=== PATIENT | female | born 1945 | race Caucasian/White ===

== ENCOUNTER 2016-09-14 12:36 | Emergency (ER) | payer MEDICARE, OTHER ==
[2016-09-14 11:20] LABS: INTERNATIONAL NORMAL RATI 1.1 UNITS (-); PARTIAL THROMBO TIME 26.6 SEC (22.5-37.2); PROTIME (NOT ORD) 14.4 SEC (12.0-14.5)
[2016-09-14 11:22] LABS: ER CBC TAT 0 Hrs 14 Mins; HEMOGLOBIN 7.8 g/dL (12.0-16.0); MANUAL DIFF YES %; MEAN CORPUS HGB CONC 31.2 g/dL (32.0-36.0); MEAN CORPUSCULAR HEMOGLOB 29.8 pg (26.0-34.0); MEAN CORPUSCULAR VOLUME 95.4 fL (80-100); NUCLEATED RED BLOOD CELLS 4.5 /100WBC (0-0); PLATELET COUNT 82 10/3/uL (150-400); RBC DISTRIBUTION WIDTH 24.6 % (12.0-16.0); RED CELL COUNT 2.62 10/6/uL (4.0-5.6); WHITE BLOOD CELLS 6.6 10/3/uL (4.5-10.5)
[2016-09-14 11:32] LABS: ASCORBIC ACID (UR NOT ORDER) NEG (NEG); BILIRUBIN, URINE NEGATIVE (NEG); ER URINALYSIS TAT 0 Hrs 11 Mins; KETONE, URINE TRACE MG/DL (NEG); LEUKOCYTE ESTERASE(NOT OR SMALL (NEG); NITRITE (URINE) NEG (NEG); WBC (NOT ORDERED) (RFLEX) 4 (0-5)
[2016-09-14 11:35] LABS: CALCIUM, SERUM 9.1 MG/DL (8.5-10.4); CHEST PAIN PROFILE TAT 0 Hrs 27 Mins; CHLORIDE, SERUM 105 MMOL/L (96-112); CO2 (CARBON DIOXIDE) 24 MMOL/L (24-34); GFR AFRICAN AMERICAN 66 ML/MIN (>=60); GFR NON AFRICAN AMERICAN 57 ML/MIN (>=60); GLUCOSE, SERUM 104 MG/DL (60-99); POTASSIUM, SERUM 4.4 MMOL/L (3.5-5.3); SODIUM, SERUM 138 MMOL/L (135-148); TROPONIN I <0.02 NG/ML (<0.05)
[2016-09-14 11:37] LABS: BUN (BLOOD UREA NITROGEN) 21 MG/DL (6-23)
[2016-09-14 11:47] LABS: ATYPICAL LYMPH OCC (0-2%) (0-5%); BAND NEUTROPHILS 8 %; EOSINOPHILS 2 %; EOSINOPHILS ABSOLUTE (CALC) 0.13 10/3/uL (0.0-0.53); ER DIFF TAT 0 Hrs 39 Mins; LYMPHOCYTES 12 %; LYMPHOCYTES ABSOLUTE (CALC) 0.79 10/3/uL (0.67-4.30); MONOCYTES 9 %; MONOCYTES ABSOLUTE (CALC) 0.59 10/3/uL (0.21-1.20); NEUTROPHILS ABSOLUTE (CALC) 5.08 10/3/uL (2.02-8.40); PLATELET ESTIMATE DEC (ADEQUATE); SEGMENTED NEUTROPHIL (0) 69 %; TOTAL NUCLEATED CELLS 100
[2016-09-14 11:49] LABS: INFLUENZA A SCREEN NEGATIVE (NEGATIVE); INFLUENZA B SCREEN NEGATIVE (NEGATIVE)
[~2016-09-14 12:36] MED LIST: ASAB PO; HYDREA PO; JAKAFI10 MG PO; LEVOTHYROXIN100 MCG PO; LIPITOR20 PO; PROZ10 PO; VASOTEC10 PO
== END 2016-09-14 15:06 | disposition home or self-care (01) ==
LOC: ER 12:36
PROVIDERS: Emergency Medicine
DX: R50.9 Fever, unspecified (principal); R05 Cough; R11.2 Nausea with vomiting, unspecified; R06.02 Shortness of breath; D61.818 Other pancytopenia; I10 Essential (primary) hypertension; Z88.1 Allergy status to other antibiotic agents; Z88.8 Allergy status to other drugs, medicaments and biological substances; Z79.82 Long term (current) use of aspirin; Z79.899 Other long term (current) drug therapy
CPT/HCPCS: 71010; 80048; 81001; 83735; 83880; 84484; 85025; 85610; 85730; 87040; 87070; 87086; 87804; 87880; 94640; 96374; 99285; A9270-GY; J2405

== ENCOUNTER 2016-10-21 08:02 | Inpatient (IN) | payer MEDICARE, OTHER ==
--- NOTE | ~2016-10-21 | DS ---
Discharge Summary [place] [address] [facility] [place]. [address] NAME: LATISHA BACON : 47 STATUS : DIS IN PAT#: [id number] AGE: 71 ADM/REG DATE : 10/21/16 MR#: [id number] REPORT SERV DATE: 10/26/16 DICTATED BY: OLIVER LARSEN DATE: 10/25/16 REPORT STATUS : Draft TRANSCRIBED BY: MODL DATE: 10/25/16 ADMISSION DATE: 10/21/2016 DISCHARGE DATE: 10/25/2016 DISCHARGE DIAGNOSES: 1. Acute diverticulitis as evidenced by diarrhea and bright red blood per rectum. 2. Myelofibrosis. 3. Hypertension. 4. Hyperlipidemia. 5. Chronic left bundle-branch block. 6. History of colon cancer and partial colectomy. 7. Previous polycythemia vera, now turning to myelofibrosis. CONSULTANTS DURING THIS HOSPITALIZATION: Dr. Taya Schaefer of Gastroenterology. INVASIVE PROCEDURES DONE DURING THIS HOSPITALIZATION: None. IMAGING: CT of the abdomen and pelvis showing finding sigmoid most likely representing diverticulitis. Differentials include infectious colitis. Followup recommended to exclude neoplasm, less likely. Splenomegaly and benign cyst, right femoral neck. BRIEF HISTORY OF PRESENT ILLNESS: The patient is a 71-year-old female, presented to the emergency room with complaints of abdominal pain, nausea, vomiting, and a bloody diarrhea, so she was admitted. For detailed history and physical exam, please see note dictated by Dr. Yenni Fontana on 10/21/2016. HOSPITAL COURSE: After being admitted to the hospital, this patient was given PRBCs to stabilize her hemoglobin. She has history of myelofibrosis, so she has chronic anemia. Dr. Schaefer saw the patient in consultation, recommended to continue antibiotic therapy. Over the last three days, this patient has continually improved. All her other medical parameters have remained stable. Her platelet count has gone down somewhat to about 41,000, but she has no evidence of any gross bleeding. She did have a bowel movement and she is tolerating a diet, so she is being discharged in stable condition to follow up in the outpatient setting. DISCHARGE DISPOSITION: Home. DISCHARGE ACTIVITY: As tolerated. DISCHARGE DIET: GI soft. DISCHARGE MEDICATIONS: Levaquin 750 mg one tablet daily for five more days, Flagyl 500 mg three times daily for five more days, [place] 5/325 one tablet every six hours p.r.n. for pain #20 with no refills given, atorvastatin 20 mg once daily, Prozac 20 mg once daily, levothyroxine 100 mcg once daily, Vasotec 10 mg twice daily, and Artificial Tears as needed. Discharge Summary [place] [address] [place] [address] NAME: LATISHA BACON : 47 STATUS : DIS IN PAT#: [id number] AGE: 71 ADM/REG DATE : 10/21/16 MR#: [id number] REPORT SERV DATE: 10/26/16 DICTATED BY: OLIVER LARSEN DATE: 10/25/16 REPORT STATUS : Draft TRANSCRIBED BY: JAYMIE DATE: 10/25/16 DISCHARGE FOLLOWUP: With Dr. Kimani Mckeon in one week for repeat blood work. With Dr. Jorge as previously scheduled for further need of colonoscopy or intervention. With Dr. Michael Skaggs as scheduled previously. More than 30 minutes spent planning this patient's discharge, reconciling medications, writing prescriptions, discussing hospital care and followup with the patient and documenting this discharge. FAWN/JAYMIE Oliver Larsen M.D. / [id number] CC: Venkata Gant M.D. Henry Paik, M.D.
--- NOTE | ~2016-10-21 | HP ---
History And Physical [place] [address] [facility] [place]. [address] NAME: LATISHA BACON : 47 STATUS : ADM IN [facility]#: [id number] AGE: 71 ADM/REG DATE : 10/21/16 MR#: [id number] REPORT SERV DATE: 10/21/16 DICTATED BY: TANYA FONTANA DATE: 10/21/16 REPORT STATUS : Draft TRANSCRIBED BY: JAYMIE DATE: 10/21/16 DATE OF ADMISSION: 10/21/2016 CHIEF COMPLAINT: Diarrhea and bloody stool. HISTORY OF PRESENT ILLNESS: The patient is a very pleasant 71-year-old white female with a history of initially polycythemia, then developed myelofibrosis, she is currently awaiting bone marrow transplant. The patient reports that yesterday she started feeling nauseous about 5 p.m. She then developed vomiting and vomited several times. She then developed loose liquidy stools which were diarrheal and contained a significant amount of bright red blood. She states she had stools all evening up to some 10 to 20 stools. She had lower abdominal crampy pain but no fever and no chills. She finally presented to [facility] Emergency Department this morning. She has a history of colorectal cancer and a polyp which was excised with a laparoscopic partial colectomy. She states she had about 6 inches removed. She had her last colonoscopy in July of this year and states everything looked good. She did have some antibiotics about a month ago in the form of Levaquin, and she completed the antibiotic as instructed. PAST MEDICAL HISTORY: 1. Myelofibrosis with chronic anemia, thrombocytopenia, and leukopenia. 2. Hyperlipidemia. 3. Colon cancer and history of partial colectomy. 4. Polycythemia vera previously. 5. Hypothyroidism. 6. Left bundle-branch block. PAST SURGICAL HISTORY: She has had a hysterectomy, tonsillectomy, laparoscopic cholecystectomy, and partial left colectomy. HOME MEDICATIONS: Pending. SOCIAL HISTORY: She never smoked or drank. She is . She has a daughter at bedside. FAMILY HISTORY: She had a mother and a sister who of lung cancer but they were smokers. REVIEW OF SYSTEMS: Full 10-point review of systems obtained. Pertinent positives mentioned in the HPI. PHYSICAL EXAMINATION: VITAL SIGNS: Blood pressure 117/53, sats 100%, temperature 93, pulse 84, and respiratory rate 22. GENERAL: Well-developed white female, in no apparent distress. HEENT: Normocephalic, atraumatic. Throat is clear. NECK: Supple. HEART: Regular rate and rhythm. History And Physical [address]. [address] NAME: LATISHA BACON : 47 STATUS : ADM IN PAT#: [id number] AGE: 71 ADM/REG DATE : 10/21/16 MR#: [id number] REPORT SERV DATE: 10/21/16 DICTATED BY: TANYA FONTANA DATE: 10/21/16 REPORT STATUS : Draft TRANSCRIBED BY: MODDea DATE: 10/21/16 LUNGS: Grossly clear. ABDOMEN: Soft, nondistended. She does have some lower abdominal tenderness in bilateral lower quadrants. I did examine her stool and it is bright red blood, it is liquid. EXTREMITIES: Warm and dry. Skin is intact. She has no peripheral edema. LAB AND X-RAY STUDIES: Coags are normal. Sodium is 138, potassium 4.3, chloride 105, CO2 of 22, BUN and creatinine 25 and 1.19. Glucose 117. LFTs are normal. Lipase is normal. Lactate is 1.3. H and H are 7.4 and 23.5, white count is 7.5, and platelets are 74. CT of the abdomen and pelvis shows wall thickening and inflammatory changes, involving her sigmoid colon diffusely, consistent with possible colitis versus diverticulitis. Urinalysis is benign. C. diff is pending. ASSESSMENT/PLAN: 1. Colitis versus diverticulitis as evidenced by diarrhea, bright red blood per rectum, abdominal pain, and findings on CT. Given her hemoglobin has dropped to 7.4, her baseline was around 8.8. I am going to transfuse two units. I am going to keep her n.p.o., provide aggressive fluid resuscitation. We will cover in the meantime with Levaquin and Flagyl to cover enteric pathogens and also diverticulitis. I did consider strongly the possibility of Clostridium difficile since she had Levaquin about a month ago. I have sent a stat C. diff. Stool has been collected, it is in the lab, awaiting testing; if this is positive, we will stop the Levaquin and start her on some p.o. vancomycin. I have consulted Dr. Jorge. If her C. diff is positive, we will likely cancel that consult but if not, we will have him see her in consultation. We will follow her exam. She is currently hemodynamically stable. I think she is safe for a Med/Surg bed. 2. History of myelofibrosis. Awaiting bone marrow transplant. She is currently undergoing workup but will likely be several months before she goes forward with that. 3. History of hypertension. Holding antihypertensives. 4. History of hyperlipidemia. Continue statin therapy. 5. Deep venous thrombosis prophylaxis. We will hold off since she has active bleeding. 6. History of left bundle branch block. 7. Disposition pending above aforementioned plan and workup. KI/JAYMIE Tanya Fontana M.D. / [id number] CC: Venkata Booth M.D. Venkata Mortensen M.D.
--- NOTE | ~2016-10-21 | CN ---
Consultation Report [facility] [address] [place]. [address] NAME: LATISHA FRANKLIN : 47 STATUS : ADM IN PAT#: [id number] AGE: 71 ADM/REG DATE : 10/21/16 MR#: [id number] REPORT SERV DATE: 10/22/16 DICTATED BY: MICHAELA MANN DATE: 10/22/16 REPORT STATUS : Draft TRANSCRIBED BY: MODL DATE: 10/22/16 GI CONSULTATION DATE OF CONSULTATION: 10/21/2016 REASON FOR CONSULTATION: Rectal bleeding with diarrhea. HISTORY OF PRESENT ILLNESS: Ms. Franklin is a very pleasant 71-year-old white female with a history of colorectal cancer with left partial colectomy who also has a history of myelofibrosis and is awaiting bone marrow transplant at [facility]. As she follows with Dr. Darin Jorge who had last done her colonoscopy in 07/2016, and found no abnormal pathology aside from her surgical site/anastomosis. She presented to [facility] with a chief complaint of diarrhea 10-20 times a day which was acute in onset and associated with left lower quadrant abdominal pain as well as blood. Her last bowel movement was yesterday prior to her admission. Hemoglobin and hematocrit of 7.4 and 23.5, platelets 74, MCV 92, INR of 1.2. CT scan showed sigmoid colon with wall thickening and inflammation suggestive of perhaps early diverticulitis versus colitis, and she has been placed on Levaquin and Flagyl, and reports to be doing much better as she denies any fevers or chills, and no bowel movement since her admission. PAST MEDICAL HISTORY: Colorectal cancer, status post partial left colectomy; polycythemia which became myelofibrosis which is awaiting bone marrow transplant; dyslipidemia; hypothyroidism; left bundle-branch block. PAST SURGICAL HISTORY: Left hemicolectomy, hysterectomy, tonsillectomy, laparoscopic cholecystectomy. SOCIAL HISTORY: No smoking, alcohol or drug use. FAMILY HISTORY: Lung cancer. MEDICATIONS: Reviewed. ALLERGIES: REVIEWED. PHYSICAL EXAMINATION: VITAL SIGNS: The patient is afebrile and the vital signs are stable. GENERAL: The patient is awake, alert and oriented x3, thin female in no acute distress. HEENT: Atraumatic, normocephalic. Anicteric. Mucous membranes moist. CARDIAC: S1, S2. CHEST: Clear. ABDOMEN: Soft, nontender, and nondistended. Bowel sounds normoactive. LABORATORY DATA: Shows WBC 7.5, hemoglobin 7.4, hematocrit 23.5, platelets 74. INR of 1.2. Consultation Report [facility] [address] [place] [address] NAME: LATISHA FRANKLIN : 47 STATUS : ADM IN PAT#: [id number] AGE: 71 ADM/REG DATE : 10/21/16 MR#: [id number] REPORT SERV DATE: 10/22/16 DICTATED BY: MICHAELA MANN DATE: 10/22/16 REPORT STATUS : Draft TRANSCRIBED BY: MODL DATE: 10/22/16 Sodium is 138, potassium is 4.3, chloride 105, bicarb 22, BUN 25, creatinine 1.19, glucose 117. Liver enzymes and lipase were normal. CT scan as dictated above. C diff found to be negative. IMPRESSION/PLAN: Most likely infectious colitis versus diverticulitis, especially given the patient's recent colonoscopy which was reviewed in her medical record. Continue the IV antibiotics. Okay to advance diet as tolerated. We will start clear liquids tonight. Recommend a followup with GI in one to two weeks after discharge and repeat colonoscopy perhaps in six to eight weeks. We will discuss with Dr. Jorge as well. Question and concerns were addressed. BELÉN/JAYMIE Michaela Mann MD / [id number] CC: Venkata Barnes M.D.
[2016-10-21 07:28] LABS: BASOPHILS 1.3 %; EOSINOPHILS 1.1 %; EOSINOPHILS ABSOLUTE 0.08 10/3/uL (0.0-0.53); ER CBC TAT 0 Hrs 00 Mins; HEMATOCRIT 23.5 % (36.0-48.0); HEMOGLOBIN 7.4 g/dL (12.0-16.0); IMMATURE GRANULOCYTES 6.4 %; LYMPHOCYTES 21.2 %; MONOCYTES 8.9 %; MONOCYTES ABSOLUTE 0.67 10/3/uL (0.21-1.20); NEUTROPHILS 61.1 %; NUCLEATED RED BLOOD CELLS 5.7 /100WBC (0-0); RBC DISTRIBUTION WIDTH 23.6 % (12.0-16.0); RED CELL COUNT 2.55 10/6/uL (4.0-5.6); WHITE BLOOD CELLS 7.5 10/3/uL (4.5-10.5)
[2016-10-21 07:29] LABS: IMMATURE GRANULOCYTES ABSOLUTE 0.48 10/3/uL (0.0-0.11); MANUAL DIFF NO %; MEAN CORPUS HGB CONC 31.5 g/dL (32.0-36.0); MEAN CORPUSCULAR VOLUME 92.2 fL (80-100); PLATELET COUNT 74 10/3/uL (150-400)
[2016-10-21 07:34] LABS: INTERNATIONAL NORMAL RATI 1.2 UNITS (-); PROTIME (NOT ORD) 14.7 SEC (12.0-14.5)
[2016-10-21 07:38] LABS: ALBUMIN 3.6 G/DL (3.5-5.0); ALKALINE PHOSPHATASE 85 U/L (45-117); BUN (BLOOD UREA NITROGEN) 25 MG/DL (6-23); CALCIUM, SERUM 9.2 MG/DL (8.5-10.4); CHLORIDE, SERUM 105 MMOL/L (96-112); CO2 (CARBON DIOXIDE) 22 MMOL/L (24-34); CREATININE 1.19 MG/DL (0.55-1.02); GFR AFRICAN AMERICAN 54 ML/MIN (>=60); GFR NON AFRICAN AMERICAN 46 ML/MIN (>=60); GLOBULIN 3.7 G/DL (2.5-4.1); GLUCOSE, SERUM 117 MG/DL (60-99); POTASSIUM, SERUM 4.3 MMOL/L (3.5-5.3); SGOT(AST) 20 U/L (5-40); SGPT(ALT) 9 U/L (5-65); SODIUM, SERUM 138 MMOL/L (135-148); TOTAL BILIRUBIN 0.9 MG/DL (0-1.2); TOTAL PROTEIN 7.3 G/DL (6.0-8.5)
[2016-10-21 07:41] LABS: LACTATE 1.3 MMOL/L (0.3-2.4)
[2016-10-21 07:45] LABS: BAND NEUTROPHILS 6 %; EOSINOPHILS 2 %; EOSINOPHILS ABSOLUTE (CALC) 0.15 10/3/uL (0.0-0.53); IMMATURE GRANS ABSOLUTE (CALC) 0.38 10/3/uL (0.0-0.11); LYMPHOCYTES 25 %; LYMPHOCYTES ABSOLUTE (CALC) 1.88 10/3/uL (0.67-4.30); METAMYELOCYTES 3 %; MONOCYTES 7 %; MONOCYTES ABSOLUTE (CALC) 0.53 10/3/uL (0.21-1.20); MYELOCYTES 2 %; NEUTROPHILS ABSOLUTE (CALC) 4.58 10/3/uL (2.02-8.40); SEGMENTED NEUTROPHIL (0) 55 %; TOTAL NUCLEATED CELLS 100
[2016-10-21 07:46] LABS: ATYPICAL LYMPH OCC (0-2%) (0-5%); MACROCYTES 1+ (5-10/OIF) (0-5/OIF); MICROCYTES 1+ (5-10/OIF) (0-5/OIF); PLATELET ESTIMATE DEC (ADEQUATE); POIKILOCYTOSIS 1+ (5-10/OIF) (0-5/OIF); POLYCHROMASIA 1+ (2-5/OIF) (0-1/OIF); SCHISTOCYTES OCC (0-2/OIF)
[2016-10-21] MEDS ORDERED: LEVOTHYROXIN100 MCG PO (08:37)
[2016-10-21] MEDS ORDERED: VASOTEC10 PO (08:37)
[2016-10-21] MEDS ORDERED: LIPITOR20 PO (08:37)
[2016-10-21] MEDS ORDERED: PROZAC PO (08:38)
[2016-10-21] MEDS ORDERED: BION TEARS OPH (08:38)
[2016-10-21 09:49] LABS: ASCORBIC ACID (UR NOT ORDER) NEG (NEG); BILIRUBIN, URINE NEGATIVE (NEG); ER URINALYSIS TAT 0 Hrs 12 Mins; KETONE, URINE TRACE MG/DL (NEG); LEUKOCYTE ESTERASE(NOT OR SMALL (NEG); NITRITE (URINE) NEG (NEG); WBC (NOT ORDERED) (RFLEX) 5 (0-5)
[2016-10-21 20:39] LABS: HEMATOCRIT 29.3 % (36.0-48.0); HEMOGLOBIN 9.5 g/dL (12.0-16.0)
[2016-10-22 06:38] LABS: CALCIUM, SERUM 9.1 MG/DL (8.5-10.4); CHLORIDE, SERUM 107 MMOL/L (96-112); CO2 (CARBON DIOXIDE) 20 MMOL/L (24-34); CREATININE 0.78 MG/DL (0.55-1.02); GFR AFRICAN AMERICAN 89 ML/MIN (>=60); GFR NON AFRICAN AMERICAN 77 ML/MIN (>=60); POTASSIUM, SERUM 3.8 MMOL/L (3.5-5.3); SODIUM, SERUM 140 MMOL/L (135-148)
[2016-10-22 06:40] LABS: BUN (BLOOD UREA NITROGEN) 13 MG/DL (6-23); GLUCOSE, SERUM 86 MG/DL (60-99)
[2016-10-22 07:12] LABS: HEMATOCRIT 31.8 % (36.0-48.0); HEMOGLOBIN 10.1 g/dL (12.0-16.0); MEAN CORPUS HGB CONC 31.8 g/dL (32.0-36.0); MEAN CORPUSCULAR HEMOGLOB 28.9 pg (26.0-34.0); MEAN CORPUSCULAR VOLUME 90.9 fL (80-100); WHITE BLOOD CELLS 7.4 10/3/uL (4.5-10.5)
[2016-10-22 07:14] LABS: PLATELET COUNT 49 10/3/uL (150-400)
[2016-10-22 07:17] LABS: MANUAL DIFF YES %
[2016-10-22 07:38] LABS: ANISOCYTOSIS 1+ (5-10/OIF) (0-5/OIF); BAND NEUTROPHILS 6 %; EOSINOPHILS 1 %; EOSINOPHILS ABSOLUTE (CALC) 0.07 10/3/uL (0.0-0.53); IMMATURE GRANS ABSOLUTE (CALC) 0.15 10/3/uL (0.0-0.11); LYMPHOCYTES 27 %; METAMYELOCYTES 2 %; MONOCYTES 4 %; NEUTROPHILS ABSOLUTE (CALC) 4.88 10/3/uL (2.02-8.40); POLYCHROMASIA 1+ (2-5/OIF) (0-1/OIF); SEGMENTED NEUTROPHIL (0) 60 %; TOTAL NUCLEATED CELLS 100
[2016-10-22 09:47] LABS: HEMOGLOBIN 9.4 g/dL (12.0-16.0)
[2016-10-22 15:33] LABS: HEMATOCRIT 27.9 % (36.0-48.0)
[2016-10-22 22:19] LABS: HEMATOCRIT 28.3 % (36.0-48.0); HEMOGLOBIN 9.2 g/dL (12.0-16.0)
[2016-10-23 05:53] LABS: BUN (BLOOD UREA NITROGEN) 12 MG/DL (6-23); CALCIUM, SERUM 8.7 MG/DL (8.5-10.4); CHLORIDE, SERUM 108 MMOL/L (96-112); CO2 (CARBON DIOXIDE) 24 MMOL/L (24-34); GFR AFRICAN AMERICAN 87 ML/MIN (>=60); GFR NON AFRICAN AMERICAN 75 ML/MIN (>=60); GLUCOSE, SERUM 92 MG/DL (60-99); POTASSIUM, SERUM 3.8 MMOL/L (3.5-5.3); SODIUM, SERUM 140 MMOL/L (135-148)
[2016-10-23 06:31] LABS: HEMATOCRIT 29.1 % (36.0-48.0); HEMOGLOBIN 9.2 g/dL (12.0-16.0); MEAN CORPUS HGB CONC 31.6 g/dL (32.0-36.0); MEAN CORPUSCULAR HEMOGLOB 28.7 pg (26.0-34.0); MEAN CORPUSCULAR VOLUME 90.7 fL (80-100); NUCLEATED RED BLOOD CELLS 2.7 /100WBC (0-0); PLATELET COUNT 51 10/3/uL (150-400); RED CELL COUNT 3.21 10/6/uL (4.0-5.6); WHITE BLOOD CELLS 5.8 10/3/uL (4.5-10.5)
[2016-10-23 06:32] LABS: MANUAL DIFF YES %
[2016-10-23 07:22] LABS: BAND NEUTROPHILS 8 %; IMMATURE GRANS ABSOLUTE (CALC) 0.23 10/3/uL (0.0-0.11); LYMPHOCYTES 19 %; METAMYELOCYTES 4 %; MONOCYTES 8 %; MONOCYTES ABSOLUTE (CALC) 0.46 10/3/uL (0.21-1.20); PLATELET ESTIMATE DEC (ADEQUATE); SEGMENTED NEUTROPHIL (0) 61 %; TOTAL NUCLEATED CELLS 100
[2016-10-23 07:23] LABS: ANISOCYTOSIS 1+ (5-10/OIF) (0-5/OIF); HYPOCHROMIA 1+ (3-10/OIF) (0-2/OIF); POIKILOCYTOSIS 1+ (5-10/OIF) (0-5/OIF)
[2016-10-23 07:24] LABS: ELLIPTOCYTES 1+ (3-10/OIF) (0-2/OIF)
[2016-10-23 10:01] LABS: HEMATOCRIT 30.6 % (36.0-48.0); HEMOGLOBIN 9.8 g/dL (12.0-16.0)
[2016-10-24 06:50] LABS: BUN (BLOOD UREA NITROGEN) 9 MG/DL (6-23); CALCIUM, SERUM 8.5 MG/DL (8.5-10.4); CHLORIDE, SERUM 106 MMOL/L (96-112); CO2 (CARBON DIOXIDE) 23 MMOL/L (24-34); CREATININE 0.75 MG/DL (0.55-1.02); GFR AFRICAN AMERICAN 94 ML/MIN (>=60); GFR NON AFRICAN AMERICAN 81 ML/MIN (>=60); GLUCOSE, SERUM 102 MG/DL (60-99); POTASSIUM, SERUM 3.5 MMOL/L (3.5-5.3); SODIUM, SERUM 140 MMOL/L (135-148)
[2016-10-24 07:35] LABS: HEMATOCRIT 28.6 % (36.0-48.0); MEAN CORPUS HGB CONC 31.5 g/dL (32.0-36.0); MEAN CORPUSCULAR HEMOGLOB 28.6 pg (26.0-34.0); MEAN CORPUSCULAR VOLUME 90.8 fL (80-100); NUCLEATED RED BLOOD CELLS 2.2 /100WBC (0-0); RBC DISTRIBUTION WIDTH 20.9 % (12.0-16.0); RED CELL COUNT 3.15 10/6/uL (4.0-5.6); WHITE BLOOD CELLS 4.9 10/3/uL (4.5-10.5)
[2016-10-24 07:40] LABS: MANUAL DIFF YES %; PLATELET COUNT 44 10/3/uL (150-400)
[2016-10-24 07:45] LABS: EOSINOPHILS 2 %; LYMPHOCYTES 28 %; LYMPHOCYTES ABSOLUTE (CALC) 1.37 10/3/uL (0.67-4.30); METAMYELOCYTES 4 %; MONOCYTES 4 %; NEUTROPHILS ABSOLUTE (CALC) 3.04 10/3/uL (2.02-8.40); SEGMENTED NEUTROPHIL (0) 62 %; TOTAL NUCLEATED CELLS 100
[2016-10-24 07:46] LABS: REACTIVE LYMPHS FEW (3-5%) (0-5%); SCHISTOCYTES OCC (0-2/OIF)
[2016-10-25 05:29] LABS: HEMATOCRIT 28.9 % (36.0-48.0); HEMOGLOBIN 9.1 g/dL (12.0-16.0); MEAN CORPUS HGB CONC 31.5 g/dL (32.0-36.0); MEAN CORPUSCULAR HEMOGLOB 28.6 pg (26.0-34.0); MEAN CORPUSCULAR VOLUME 90.9 fL (80-100); NUCLEATED RED BLOOD CELLS 2.8 /100WBC (0-0); RBC DISTRIBUTION WIDTH 20.4 % (12.0-16.0); RED CELL COUNT 3.18 10/6/uL (4.0-5.6)
[2016-10-25 05:30] LABS: MANUAL DIFF YES %; PLATELET COUNT 41 10/3/uL (150-400)
[2016-10-25 05:34] LABS: BUN (BLOOD UREA NITROGEN) 11 MG/DL (6-23); CALCIUM, SERUM 8.6 MG/DL (8.5-10.4); CHLORIDE, SERUM 107 MMOL/L (96-112); CO2 (CARBON DIOXIDE) 26 MMOL/L (24-34); CREATININE 0.76 MG/DL (0.55-1.02); GFR AFRICAN AMERICAN 92 ML/MIN (>=60); GFR NON AFRICAN AMERICAN 79 ML/MIN (>=60); GLUCOSE, SERUM 103 MG/DL (60-99); POTASSIUM, SERUM 4.1 MMOL/L (3.5-5.3); SODIUM, SERUM 143 MMOL/L (135-148)
[2016-10-25 05:36] LABS: ALBUMIN 2.7 G/DL (3.5-5.0)
[2016-10-25 06:21] LABS: BAND NEUTROPHILS 4 %; IMMATURE GRANS ABSOLUTE (CALC) 0.36 10/3/uL (0.0-0.11); LYMPHOCYTES 22 %; LYMPHOCYTES ABSOLUTE (CALC) 1.32 10/3/uL (0.67-4.30); METAMYELOCYTES 4 %; MONOCYTES 4 %; MONOCYTES ABSOLUTE (CALC) 0.24 10/3/uL (0.21-1.20); MYELOCYTES 2 %; NEUTROPHILS ABSOLUTE (CALC) 4.08 10/3/uL (2.02-8.40); REACTIVE LYMPHS FEW (3-5%) (0-5%); SEGMENTED NEUTROPHIL (0) 64 %; TEARDROP SHAPED RBCS FEW (3-10/OIF); TOTAL NUCLEATED CELLS 100
[2016-10-25 06:22] LABS: SCHISTOCYTES FEW (3-10/OIF)
[2016-10-25] MEDS ORDERED: FLAG500TAB PO (09:59)
[2016-10-25] MEDS ORDERED: LEVAQUIN750 MG PO (09:59)
[2016-10-25] MEDS ORDERED: NORCO1 TA1 PO (10:02)
== END 2016-10-25 11:39 | disposition home or self-care (01) | DRG 378 ==
LOC: ER 08:02 → 4SO 09:38
PROVIDERS: Hospitalist; Internal Medicine; Nurse Practitioner
PROC: 30233N1 Transfusion of Nonautologous Red Blood Cells into Peripheral Vein, Percutaneous Approach (ICD-10-PCS; principal; 2016-10-21)
DX: K57.33 Diverticulitis of large intestine without perforation or abscess with bleeding (principal); D75.81 Myelofibrosis; E87.2 Acidosis; I44.7 Left bundle-branch block, unspecified; D62 Acute posthemorrhagic anemia; I10 Essential (primary) hypertension; E78.5 Hyperlipidemia, unspecified; Z85.038 Personal history of other malignant neoplasm of large intestine; Z90.49 Acquired absence of other specified parts of digestive tract; E03.9 Hypothyroidism, unspecified
CPT/HCPCS: 36415; 74176; 80048; 80053; 80069; 81001; 83605; 83690; 85014; 85018; 85025; 85610; 85730; 86850; 86900; 86901; 86920; 87040; 87045; 87046; 87046-59; 87086; 87328; 87329; 87493; 87493-59; 87899; 87899-59; 93975; 96374; 96375; 99285; A9270-GY; C9113; J1170; J1956; J2405; J3480; P9016